=== PATIENT | male | born 1945 | race Caucasian/White ===

== ENCOUNTER 2019-04-23 14:30 | Inpatient (IN) ==
[2019-04-23] MEDS ORDERED: ASPIRIN PO ONE (14:55)
--- NOTE | 2019-04-23 15:20 | PROVIDER DOCUMENTATION ---
HPI-Chest Pain - General Chief Complaint: Chest Pain Stated Complaint: CP--HEART PT--- Time Seen by Provider: 04/23/19 14:43 Source: patient, family () Allergies/Adverse Reactions: Patient Allergies Allergy/AdvReac Type Severity Reaction Status Date / Time codeine Allergy Unknown Verified 04/23/19 15:07 latex Allergy HIVES Verified 04/23/19 15:07 Home Medications: Home Medication List Medication Instructions Recorded Confirmed Last Taken Type Escitalopram [Lexapro] 10 mg PO HS #30 tablet 09/02/15 04/23/19 04/22/19 Rx Metoprolol Succinate E.r. [Toprol 100 mg PO HS #30 tablet 09/02/15 04/23/19 04/22/19 Rx Xl] Fluticasone Propionate [Flonase 2 spray NS DAILY 12/08/17 04/23/19 01/03/18 21:00 History Allergy Relief] Aspirin 81 mg PO QHS 01/04/18 04/23/19 04/22/19 History Empagliflozin/Metformin HCl 1 each PO DAILY 01/04/18 04/23/19 04/23/19 History [Synjardy Xr 25-1,000 mg Tablet] Albuterol Sulfate [Proventil Hfa] 1 puff INH PRN PRN 04/23/19 04/23/19 Unknown History Nabumetone 1 tab PO DAILY 04/23/19 04/23/19 04/23/19 History - History of Present Illness-CP Nature of Presenting Problem: 73 YO M pmh for CAD and 2 stents presents with 2 episodes of chest pain lasting 10 minutes and relieved with Nitro. It was sharp, left sided, radiating to left and right jaw. Some associated Nausea and change in vision. Pain has since resolved. Pt states he was out golfing when this occurred. He had stents placed more than 10 years ago and his marketing and outreach coordinator is at . These recent episodes of CP are new for him. Location: reports: other (left chest) Chest Pain Radiation: reports: jaw, arms Quality of Pain: reports: sharp Onset/Duration: 1-3 hours ago Timing: gone now, resolved prior to arrival Context/Activities at Onset: reports: light activity Modifying Factors: improves with: analgesics Associated Symptoms: reports: nausea. denies: abdominal pain, fatigue, fever/chills, headache, shortness of breath, syncope, vomiting Nitro Today/Relief: 0.4 mg x 2 Aspirin Treatment Today: no aspirin today Similar Symptoms Previously?: No Recently Seen Here or By Another Healthcare Provider: No Review of Systems - Adult - REVIEW OF SYSTEMS - ADULT Constitutional: denies: chills, fever, fatique Eyes: reports: blurred vision Ears, Nose, Mouth & Throat: reports: no symptoms reported Cardiovascular: reports: see HPI, chest pain Respiratory: denies: cough, dyspnea on exertion, hemoptysis, shortness of breath Gastrointestinal: reports: no symptoms reported Musculoskeletal: reports: no symptoms reported Integumentary: reports: no symptoms reported Neurological: denies: headache/migraines, loss of balance, seizure, syncope Past History - Adult - PAST MEDICAL HISTORY-ADULT Review of Records: reports: Old Records Reviewed, Nursing Assessment Review, Medications Reviewed, Social history reviewed & non-contributory. Major Childhood Illnesses: reports: denies history Cardiovascular: reports: denies history, HTN Respiratory: reports: asthma, COPD, sleep apnea Gastrointestinal: reports: denies history Obstetrical/Gynecological: reports: denies history Genitourinary: reports: kidney stones Musculoskeletal: reports: denies history Neurological: reports: denies history Endocrine/Immune: reports: Diabetes Diabetes Type: Type 2 Diabetes controlled by:: PO Meds Other Conditions: reports: denies history - PRIOR SURGERIES/PROCEDURES Surgical/Procedure History: reports: cardiac stent, orthopedic (extremity). denies: recent surgery - FAMILY HISTORY Family History: reviewed, not pertinent - SOCIAL HISTORY Smoking: denies Physical Exam-General - PHYSICAL EXAM-ADULT Initial Vital Signs Reviewed: Yes - CONSTITUTIONAL General Appearance: appears well, alert, no apparent distress - EYES Eyes: PERRL/EOMI, pink conjunctivae - HEAD, EARS, NOSE, MOUTH & THROAT HENMT: normocephalic/atraumatic, moist mucous membranes - NECK Neck: non-tender, full range of motion, supple - RESPIRATORY Respiratory: chest non-tender, lungs clear, normal breath sounds, no pleuratic chest pain, no respiratory distress, no accessory muscle use - CARDIOVASCULAR Cardiovascular: regular rate, rhythm, no edema, no JVD, no murmur, JVD - GASTROINTESTINAL (ABDOMEN) Abdominal Exam: normal bowel sounds, non tender, soft. negative: distended - MUSCULOSKELETAL Extremity: normal range of motion, non-tender, normal gait, normal inspection, no pedal edema, no calf tenderness - SKIN Integumentary: normal color, normal turgor, other (linear scar right knee) - NEUROLOGIC Neurologic: grossly normal - PSYCHIATRIC Psych/Mental Status: normal mood/affect, normal thought content, normal thought process - HEART Score HEART Score: History: Moderately Suspicious HEART Score: ECG: Normal HEART Score: Age: > or = 65 Years HEART Score: Risk Factors for Atherosclerotic Disease: > or = 3 Risk Factors or History of Atherosclerotic Disease HEART Score: Troponin: < or = Normal Limit Total HEART Score:: 5 Progress - PLAN OF CARE/RESULTS Progress/Plan/Lab Results: Vital Signs - 8 hr 04/23/19 14:46 04/23/19 14:49 04/23/19 15:00 Temperature 97.6 F Pulse Rate 73 77 74 Respiratory Rate 15 18 18 Blood Pressure 118/77 118/77 94/56 O2 Sat by Pulse Oximetry 96 96 93 L 04/23/19 15:01 04/23/19 15:15 04/23/19 15:30 Temperature Pulse Rate 74 72 71 Respiratory Rate 22 16 17 Blood Pressure 110/67 O2 Sat by Pulse Oximetry 96 97 95 04/23/19 15:31 04/23/19 15:45 04/23/19 16:00 Temperature Pulse Rate 71 67 66 Respiratory Rate 17 14 13 Blood Pressure 117/69 O2 Sat by Pulse Oximetry 95 95 96 04/23/19 16:01 04/23/19 16:15 04/23/19 16:16 Temperature Pulse Rate 69 62 62 Respiratory Rate 19 17 18 Blood Pressure 117/69 O2 Sat by Pulse Oximetry 94 L 96 95 04/23/19 16:30 04/23/19 16:31 04/23/19 16:45 Temperature Pulse Rate 63 63 63 Respiratory Rate 15 13 12 Blood Pressure 102/68 O2 Sat by Pulse Oximetry 96 96 96 04/23/19 17:00 04/23/19 17:15 04/23/19 17:33 Temperature Pulse Rate 60 61 61 Respiratory Rate 14 19 Blood Pressure 117/77 O2 Sat by Pulse Oximetry 96 97 96 Laboratory Results - last 24 hr 04/23/19 04/23/19 04/23/19 15:19 15:19 15:19 WBC 5.40 RBC 4.72 Hgb 15.0 Hct 43.8 MCV 92.8 MCH 31.8 H MCHC 34.2 RDW Std Deviation 13.5 Plt Count 115 L MPV 11.6 H Immature Gran % (Auto) 0.0 Neut % (Auto) 58.2 Lymph % (Auto) 33.1 [place] % (Auto) 6.1 Eos % (Auto) 2.4 Baso % (Auto) 0.2 Immature Gran # (Auto) 0.00 Neut # (Auto) 3.14 Lymph # (Auto) 1.79 [place] # (Auto) 0.33 Eos # (Auto) 0.13 Baso # (Auto) 0.01 Sodium 138 Potassium 4.5 Chloride 103 Carbon Dioxide 21 L Anion Gap 14 BUN 15 Creatinine 0.9 Estimated GFR/1.73 m2 > 60 BUN/Creatinine Ratio 17 Glucose 175 H Calculated Osmolality 281 Calcium 9.0 Total Bilirubin 0.41 AST 31 ALT 16 Alkaline Phosphatase 61 Creatine Kinase 119 Troponin T < 0.010 Total Protein 7.2 Albumin 3.8 Globulin 3.4 Albumin/Globulin Ratio 1.1 TSH 04/23/19 15:19 WBC RBC Hgb Hct MCV MCH MCHC RDW Std Deviation Plt Count MPV Immature Gran % (Auto) Neut % (Auto) Lymph % (Auto) [place] % (Auto) Eos % (Auto) Baso % (Auto) Immature Gran # (Auto) Neut # (Auto) Lymph # (Auto) [place] # (Auto) Eos # (Auto) Baso # (Auto) Sodium Potassium Chloride Carbon Dioxide Anion Gap BUN Creatinine Estimated GFR/1.73 m2 BUN/Creatinine Ratio Glucose Calculated Osmolality Calcium Total Bilirubin AST ALT Alkaline Phosphatase Creatine Kinase Troponin T Total Protein Albumin Globulin Albumin/Globulin Ratio TSH 4.81 H Orders Category Date Time Status Cardiac Monitoring DIRECTED Care 04/23/19 14:56 Active cxr [CHEST-2 VIEWS] [RAD] Stat Exams 04/23/19 17:20 Completed CBC WITH ELECTRONIC DIFF [HEME] Stat Lab 04/23/19 15:19 Completed CK PROFILE [SP CHEM] Stat Lab 04/23/19 15:19 Completed CK PROFILE [SP CHEM] Stat Lab 04/23/19 17:58 Received COMPREHENSIVE METABOLIC PANEL [CHEM] Stat Lab 04/23/19 15:19 Completed TROPONIN T Stat Lab 04/23/19 15:19 Completed TROPONIN T Stat Lab 04/23/19 17:58 Received TSH Stat Lab 04/23/19 15:19 Completed Aspirin Med 04/23/19 14:55 Discontinued 324 mg PO NOW ONE EKG [EKG] Stat Ther 04/23/19 14:52 Draft negative cardiac enzymes, will repeat. normal EKG. Normal CXR. admitting for cardiac workup. pt with hx of CAD and stents Result Diagrams: 04/23/19 15:19 04/23/19 15:19 - REASSESSMENT Reassessment #1 Time Reassessed: 16:35 Status: unchanged (pt doing well, has not had any more episodes of chest pain. No recent cardiac workup. Will admit for chest pain evaluation.) - EKG 1 Time of EKG reading by physician:: 15:15 EKG Read and Signed by:: Jared Conner EKG Interpretation (*Must complete 3 of following elements*): Normal Rate: 74 Rhythm: NSR QRS: normal AR Interval: normal ST Wave: normal Prior EKG Comparison: unchanged from prior (12/08/17) - XRAY 1 XRAY Study: Chest Impression: See EMR Report (EXAM: CHEST-2 VIEWS INDICATION: CP TECHNIQUE: 2 views COMPARISON: 06/21/2016 FINDINGS: There is mild subsegmental atelectasis at the right lung base. The lungs are grossly clear, otherwise. There is no discrete pleural fluid collection or pneumothorax. The cardiomediastinal silhouette and central vasculature are grossly unremarkable. IMPRESSION: Mild right basilar subsegmental atelectasis. No definite acute pathology, otherwise. Electronically signed by Alejandro Crews 04/23/2019 6:04 PM) - CONSULTS/PCP/HOSPITALIST Notification #1 *Consult/PCP/Hospitalist*: Dr. Vaughn Time Discussed: 18:17 Consult Disposition: Will see in ED Departure - Departure Date of Disposition Decision: 04/23/19 Time of Disposition Decision: 18:15 DIAGNOSIS: Chest pain, Elevated TSH, Diabetes Disposition: ADMITTED INPATIENT 09 Certified Medical Emergency: Emergent Condition: Stable Referrals and Follow-Ups: Sergei Davis MD [Primary Care Provider] - - Critical Care Note This patient required my direct & personal management of CC.: No Attestation - Physician/ BLUE Attestation The physician spent face to face time with patient:: Yes Advanced Practice Provider documentation review:: Supervising physician onsite and consulted in the evaluation and care of this patient. The physician did have a face to face encounter with the patient.
[2019-04-23 15:31] LABS: BASO# 0.01 X1000 (0.0-0.2); BASO% 0.2 % (0.0-0.8); EOS# 0.13 X1000 (0.0-0.7); EOS% 2.4 % (0.0-10.0); HEMATOCRIT 43.8 % (42.0-52.0); LYMPH# 1.79 X1000 (1.2-3.4); LYMPH% 33.1 % (20.5-51.1); MCH 31.8 PG (27-31); MCHC 34.2 g/dL (33-37); MCV 92.8 FL (81-99); MONO# 0.33 X1000 (0.11-0.59); MONO% 6.1 % (1.7-9.3); MPV 11.6 FL (7.4-10.4); NEUT# 3.14 X1000 (1.4-6.5); NEUT% 58.2 % (42.2-75.2); PLT 115 X1000 (130-400); RBC 4.72 XMIL (4.7-6.1); RDW 13.5 % (11.5-14.5)
[2019-04-23 16:41] LABS: AGAP 14; ALB/GLOB RATIO 1.1; ALBUMIN 3.8 g/dL (3.5-5.0); ALKALINE PHOSPHATASE 61 U/L (32-122); BUN 15 mg/dL (8-22); CHLORIDE 103 mmol/L (98-107); CK PROFILE 119 U/L (24-204); COSMO 281; CREATININE 0.9 mg/dL (0.7-1.2); ESTIMATED GFR > 60; GLUCOSE 175 mg/dL (70-104); GOT 31 U/L (10-34); GPT 16 U/L (10-44); POTASSIUM 4.5 mmol/L (3.5-5.1); SODIUM 138 mmol/L (136-145); TCO2 21 mmol/L (25-35); TOTAL BILIRUBIN 0.41 mg/dL (0.20-1.00); TOTAL PROTEIN 7.2 g/dL (6.3-8.3)
--- NOTE | 2019-04-23 17:42 | EKG Report ---
Test Performed on : 04/23/2019 2:39:58 PM Test Reason : CP Blood Pressure : / mmHG Vent. Rate : 074 BPM Atrial Rate : 074 BPM P-R Int : 202 ms QRS Dur : 082 ms QT Int : 398 ms P-R-T Axes : 023 -04 028 degrees QTc Int : 441 ms Normal sinus rhythm. Normal ECG When compared with ECG of 08-DEC-2017 14:17, No significant change was found Unconfirmed Result
--- NOTE | 2019-04-23 18:06 | Diag Imaging Result Doc PS360 ---
EXAM: CHEST-2 VIEWS INDICATION: CP TECHNIQUE: 2 views COMPARISON: 06/21/2016 FINDINGS: There is mild subsegmental atelectasis at the right lung base. The lungs are grossly clear, otherwise. There is no discrete pleural fluid collection or pneumothorax. The cardiomediastinal silhouette and central vasculature are grossly unremarkable. IMPRESSION: Mild right basilar subsegmental atelectasis. No definite acute pathology, otherwise. Electronically signed by Alejandro Crews 04/23/2019 6:04 PM
--- NOTE | 2019-04-23 19:03 | HISTORY AND PHYSICAL ---
CHIEF COMPLAINT: Chest pain. HISTORY OF PRESENT ILLNESS: Mr. Collier, a 73-year-old, white gentleman patient of Dr. Davis, was in his usual state of health this morning. The patient started having pain in the left side of the chest, which patient described as sharp, other times pressure-like pain associated with sweating and shortness of breath. The patient was walking when the pain started. The patient went to his car and took some nitroglycerin. Pain eased up and again in 10 minutes he had another episode of chest pain. The patient took another nitroglycerin which did help relieving chest pain. The patient does have multiple risk factors for coronary artery disease including history of coronary artery disease and stent placement, hypertension, male patient, hyperlipidemia and obesity. The patient missed his appointment with his pharmacy intake coordinator in [place] this past October. Pain from the chest was going to the right side of his jaw. The patient came to the emergency room, evaluated by ER physician. Because of this new pain with multiple risk factors, we decided to admit patient for further care. The patient denied any pleuritic type of chest pain. He does have cough with scanty sputum production. Denied any skin rash suggestive of shingles. No dysphagia or odynophagia. Denied any heartburn. The patient claims occasionally when he tries to eat fast he does have choking episode. No diarrhea alternating with constipation. No recent weight loss or weight gain. At times, polyuria, polydipsia. No dysuria or hematuria. Denied runny nose, stuffy nose, sinus drainage. No focal numbness, tingling, weakness. Not any headache. No focal weakness. ALLERGIES: Codeine and latex. HOME MEDICATIONS: Include Lexapro, Toprol-XL, Flonase, aspirin, Synjardy XR, Proventil and Relafen. PAST MEDICAL HISTORY: Significant for hypertension, coronary artery disease, hyperlipidemia, NIDDM, BPH, history of a kidney stone, reactive airway disease, osteoarthritis, intolerance of statin medicine, hyperlipidemia. PAST SURGICAL HISTORY: Patient had right shoulder surgery, left knee surgery, right knee arthroplasty, history of stone removal from right kidney. Patient had two stent placement and recently diagnosed to have cyst in his breast. PERSONAL HISTORY: . Quit smoking many years ago. Denied alcohol or substance abuse. Fairly independent in activities of daily living. REVIEW OF SYSTEMS: As per HPI. PHYSICAL EXAMINATION: GENERAL: Elderly white gentleman in no acute distress. VITAL SIGNS: Blood pressure 117/77, pulse 60, respirations 14, temperature 97.6 degrees. SKIN: Senile turgor. No rash or petechiae. HEAD: Atraumatic, normocephalic. EYES: [place] conjunctivae. Anicteric sclerae. Extraocular muscle movement normal. Fundus cannot be penetrated. ENT: Good oral hygiene. Ears and nose benign. NECK: Supple. No JVD, thyromegaly or lymphadenopathy. CHEST: Bilateral good air entry present. No rales or rhonchi. Few basal crepitations. CARDIOVASCULAR: S1 and S2 heard. No gallop or thrill. ABDOMEN: Soft, globular. Bowel sounds present. No organomegaly or mass. EXTREMITIES: No cyanosis, clubbing. No acute DVT. Peripheral pulsation intact. CENTRAL NERVOUS SYSTEM: Alert, awake, able to move all 4 limbs. No focalities. CONSIDERATION: Patient admitted with new onset chest pain in a patient with known coronary artery disease and multiple risk factors. His other problem includes hypertension, NIDDM, history of hyperlipidemia, coronary artery disease, osteoarthritis, reactive airway disease and morbid obesity. LABORATORY DATA: TSH 4.81. Cardiac isoenzymes negative. Blood sugar 175. CBC results reviewed. DIAGNOSTIC DATA: Chest x-ray: Mild bibasilar subsegmental atelectasis. Electrocardiogram revealed normal sinus rhythm. Left atrial enlargement possible. No acute ST-T wave changes. PLAN: Admit patient to the hospital, telemetry monitoring, oxygen, DVT and GI prophylaxis. Consider stress test, echocardiogram, serial cardiac isoenzymes and EKG. Overall plan discussed at length with the patient and . They are in agreement. Encouraged weight reduction. cc: Yuan Watters MD
[2019-04-23] MEDS ORDERED: TOPROL XL PO SCH (23:35)
[2019-04-23] MEDS ORDERED: SODIUM CHLORIDE 0.9% INJ SCH (23:35)
[2019-04-23] MEDS ORDERED: LEXAPRO PO SCH (23:35)
[2019-04-23] MEDS ORDERED: PROTONIX IV SCH (23:35)
[2019-04-24] MEDS: DUONEB (A & A) INH SCH ×3 (03:16→16:09)
[2019-04-24 06:31] LABS: BASO# 0.01 X1000 (0.0-0.2); BASO% 0.2 % (0.0-0.8); EOS# 0.21 X1000 (0.0-0.7); HEMATOCRIT 45.6 % (42.0-52.0); HEMOGLOBIN 15.3 g/dL (14.0-18.0); LYMPH# 1.76 X1000 (1.2-3.4); LYMPH% 41.6 % (20.5-51.1); MCH 31.4 PG (27-31); MCHC 33.6 g/dL (33-37); MCV 93.4 FL (81-99); MONO# 0.39 X1000 (0.11-0.59); MONO% 9.2 % (1.7-9.3); MPV 11.1 FL (7.4-10.4); NEUT# 1.86 X1000 (1.4-6.5); PLT 126 X1000 (130-400); RBC 4.88 XMIL (4.7-6.1); RDW 13.5 % (11.5-14.5); WBC 4.23 X1000 (4.8-10.8)
[2019-04-24 06:46] LABS: AGAP 11; ALBUMIN 3.5 g/dL (3.5-5.0); ALKALINE PHOSPHATASE 58 U/L (32-122); BUN 13 mg/dL (8-22); CALCIUM 8.6 mg/dL (8.8-10.2); CHLORIDE 106 mmol/L (98-107); CHOLESTEROL 238 mg/dL (0-200); COSMO 280; CREATININE 0.9 mg/dL (0.7-1.2); ESTIMATED GFR > 60; GLUCOSE 112 mg/dL (70-104); GOT 22 U/L (10-34); GPT 12 U/L (10-44); HDL 37 mg/dL (35-55); LDL 125 mg/dL; POTASSIUM 4.2 mmol/L (3.5-5.1); SODIUM 140 mmol/L (136-145); TCO2 23 mmol/L (25-35); TOTAL BILIRUBIN 0.47 mg/dL (0.20-1.00); TRIGLYCERIDES 379 mg/dL (39-160); VLDL 76 mg/dL
[2019-04-24 07:23] LABS: HEMOGLOBIN A1C 6.3 % (4.8-6.0)
[2019-04-24] MEDS ORDERED: LEXISCAN ONE (08:14)
[2019-04-24] MEDS ORDERED: FLONASE NAS SCH (09:00)
--- NOTE | 2019-04-24 09:14 | PROGRESS NOTE ---
DATE: 04/24/2019 SUBJECTIVE: No chest pains overnight. 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 His cardiac enzymes, troponin levels in the emergency room were negative. He has undergone half of the stress testing this morning with the rest stage still pending. He feels well currently. OBJECTIVE: Vital signs: Afebrile pulse 19, respirations 20, blood pressure 133/77, O2 saturation on room air 100%. Cardiovascular: Regular rate and rhythm without distinct murmur. Lungs: Clear. Extremities: No edema. LABORATORY DATA: Reviewed along with EKGs and chest x-ray. ASSESSMENT: 1. Chest pains. 2. Known coronary artery disease. 3. Hypertension. 4. Hyperlipidemia. 5. Type 2 diabetes mellitus. 6. Benign prostatic hypertrophy. 7. Reactive airway disease. 8. Osteoarthritis. 9. Intolerance to statin medications. 10. Hyperlipidemia. PLAN: We will await the resting portion of the stress testing and will review the data later today. Otherwise, continue his beta agusto, DuoNeb, aspirin therapy. cc: MD Yuan Alvaardo MD
[2019-04-24] MEDS ORDERED: ASPIRIN PO SCH ×2 (11:00→21:00)
[2019-04-24 11:35] VITALS: BP 122/68
--- NOTE | 2019-04-24 13:09 | Diag Imaging Result Document ---
PROCEDURE NAME: MYOCARDIAL PERF SCAN, STR/REST - 04/23/2019 INDICATION: Chest pain. PROCEDURES PERFORMED: 1. Lexiscan stress. 2. One-day stress/rest myocardial perfusion imaging. PROCEDURE IN DETAIL: Mr. Collier was brought to the nuclear laboratory and had a resting study with injection of 14.7 mCi of technetium-99m sestamibi with the usual imaging protocol utilized. He subsequently was brought back in and had a Lexiscan stress. At peak stress, was injected with 44 mCi of technetium-99m sestamibi with usual imaging protocol utilized. FINDINGS: LEXISCAN STRESS RESULTS: 1. Baseline EKG shows sinus rhythm with suggestion of LVH. 2. Lexiscan stress did not demonstrate any clear evidence of ischemic-related EKG changes or significant arrhythmias. PERFUSION IMAGING RESULTS: 1. No evidence of abnormal extracardiac uptake. 2. TID ratio is 1.06. 3. Perfusion imaging does not demonstrate any ischemic changes. There is some evidence of mild soft tissue attenuation artifact in the mid inferior basal inferior segments. Wall motion appears to be intact in those affected areas. 4. Normal ejection fraction of 79%. The end-diastolic volume is 92, end-systolic volume 19. cc: MD Yuan Solomon MD
--- NOTE | 2019-04-24 17:39 | PROGRESS NOTE ---
DATE: 04/24/2019 The patient has done well during the day. He has had no chest pains or shortness of breath. Nuclear stress testing comes back satisfactory with minimal diaphragmatic attenuation. No wall motion abnormality. We will discharge him home on home medications. He has adequate nitroglycerin tablets at home and he knows to come back to the ER should he have recurrent chest pains. I advised him to see Dr. Rg his pack room operator back within a week and me in 10 to 14 days. cc: MD Yuan Alvarado MD
--- NOTE | 2019-06-10 21:51 | DISCHARGE SUMMARY ---
ADMISSION DATE: 04/23/2019 DISCHARGE DATE: 04/24/2019 DIAGNOSES: 1. Chest pains with satisfactory nuclear stress testing. 2. Known coronary artery disease. 3. Hypertension. 4. Hyperlipidemia. 5. Type 2 diabetes mellitus. 6. Benign prostatic hypertrophy. 7. Reactive airway disease. 8. Osteoarthritis. 9. Intolerance to statin medications. 10. Hyperlipidemia. PROCEDURES: 1. Chest x-ray done 04/23 revealing mild right basilar subsegmental atelectasis. 2. Myocardial perfusion scan/nuclear stress testing revealing baseline EKG showing sinus rhythm with suggestion of LVH. Lexiscan stress did not demonstrate any evidence of ischemic related EKG changes or significant arrhythmias. EF of 79% on perfusion imaging results and no demonstration of ischemic changes although there is some evidence of mild soft tissue attenuation artifact in the mid inferior basal inferior segments, wall motion appears to be intact those affected areas reason for admission. REASON FOR ADMISSION AND HOSPITAL COURSE: The patient is a 73-year-old white male followed in my medical practice came in with left-sided chest pain. CBCs were unremarkable. Chest x-ray with findings as above. CMP unremarkable. A1c 6.3, LDL 125, HDL 37, total cholesterol 238, triglycerides 379, CKs in the low 100s and troponins negative x4 at less than 0.01 x 4. The patient was given aspirin therapy and continued on Toprol-XL 100 mg daily, albuterol MDI. Flonase, Lexapro was continued. The patient underwent Lexiscan nuclear stress testing with negative findings. I spoke with Dr. Poole, the ball racker and they agreed to see him back in followup. We discharged him home to follow up with them in 2 to 3 days with additional studies if required such as CT coronary angiogram which they discussed with me in detail. He will resume his home medications at discharge. cc: MD Yuan Alvarado MD MTDD
== END 2019-04-24 18:24 | disposition home or self-care (01) | DRG 313 ==
LOC: 3N 14:30 → ED 14:30 → OBSVTOIN 20:05
PROVIDERS: ADMIT Internal Medicine; ATTEND Family Medicine